=== PATIENT | female | born 1975 | race Caucasian/White ===

== ENCOUNTER → 2018-08-31 | Outpatient (CLI) | payer BC | END | disposition home or self-care (01) | LOC: RADMAMWWP 13:32 | PROVIDERS: ATTEND Obstetrics & Gynecology | DX: Z53.9 Procedure and treatment not carried out, unspecified reason (principal) ==

== ENCOUNTER → 2020-12-22 | Outpatient (CLI) | payer BC ==
--- NOTE | 2020-12-23 09:26 | MM ---
Reason for exam: screening (asymptomatic). Last mammogram was performed 10 years and 1 month ago. History: Patient had first child at age 33. Took hormonal contraceptives for 10 years. Physical Findings: A clinical breast exam by your physician is recommended on an annual basis and results should be correlated with mammographic findings. MG 3D Screening Mammo W/Cad Bilateral CC and MLO view(s) were taken. Prior study comparison: November 09, 2010, bilateral digital screening mammo w/CAD. There are scattered fibroglandular densities. There is no discrete abnormality. No significant changes when compared with prior studies. ASSESSMENT: Negative, BI-RAD 1 RECOMMENDATION: Routine screening mammogram of both breasts in 1 year.
== END | disposition home or self-care (01) ==
LOC: RADMAMWWP 15:59
PROVIDERS: ATTEND Obstetrics & Gynecology
DX: Z12.31 Encounter for screening mammogram for malignant neoplasm of breast (principal)
CPT/HCPCS: 77063; 77067

== ENCOUNTER → 2022-06-27 | Outpatient (CLI) | payer BC ==
--- NOTE | 2022-06-28 18:47 | MM ---
Reason for Exam: Screening (asymptomatic). Last mammogram was performed 1 year(s) and 6 month(s) ago. Patient History: Menarche at age 13. First Full-Term at age 33. Late child-bearing (after 30). Patient used Hormonal Contraceptives for 10 years. Last menstrual period: 06/23/2022 Risk Values: Dee 5 year model risk: 1.2%. NCI Lifetime model risk: 12.7%. Prior Study Comparison: 11/09/2010 Bilateral Screening Mammogram, [facility]. 12/22/2020 Bilateral Screening Mammogram, [facility]. Tissue Density: The breast tissue is heterogeneously dense. This may lower the sensitivity of mammography. Findings: Analyzed By CAD. Asymmetric density superior right MLO view middle to posterior depth remains unchanged. There is no suspicious group of microcalcifications or new suspicious mass in either breast. Overall Assessment: Benign, BI-RAD 2 Management: Screening Mammogram of both breasts in 1 year. 1. Patient should continue monthly self breast exams. 2. A clinical breast exam by your physician is recommended on an annual basis. 3. This exam should not preclude additional follow-up of suspicious palpable abnormalities. Electronically signed and approved by: Emir Garsia M.D. Radiologist
== END | disposition home or self-care (01) ==
LOC: RADMAMWWP 16:04
PROVIDERS: ATTEND Obstetrics & Gynecology
DX: Z12.31 Encounter for screening mammogram for malignant neoplasm of breast (principal)
CPT/HCPCS: 77063; 77067

== ENCOUNTER → 2022-08-08 | Outpatient (CLI) | payer BC ==
[2022-08-08 18:08] LABS: Basophils # (A) 0.03 X 10*3/uL (0.00-0.10); Basophils % (A) 0.4 %; Eosinophils # (A) 0.09 X 10*3/uL (0.04-0.35); Eosinophils % (A) 1.3 %; HGB 13.3 g/dL (12.0-15.0); Immature Grans, Automated 0.1 %; Lymphocytes # (A) 1.56 X 10*3/uL (0.90-5.00); Lymphocytes % (A) 23.3 %; MCH 29.8 pg (27.0-32.0); MCHC 31.7 g/dL (32.0-37.0); MCV 94.2 fL (80.0-97.0); Mean Platelet Volume 10.4 fL (9.5-12.2); Monocytes % (A) 7.5 %; NRBC Per 100 WBC 0 /100 WBCS (0.0-0.0); Neutrophils # (A) 4.51 X 10*3/uL (1.80-7.70); Neutrophils % (A) 67.4 %; Platelet Count 228 X 10*3/uL (140-440); RBC 4.46 X 10*6/uL (4.10-5.20); RDW 13.2 % (11.5-14.5)
[2022-08-08 18:16] LABS: Anion Gap 9.2 mmol/L (10.00-18.00); Blood Urea Nitrogen 9.9 mg/dL (9.0-27.0); Carbon Dioxide 26.3 mmol/L (20.0-27.5); Non-African American GFR(CKD) 89.7 (60.0-200.0)
== END | disposition home or self-care (01) ==
LOC: LABPAT 12:19
PROVIDERS: ATTEND Obstetrics & Gynecology Obstetrics
DX: Z01.812 Encounter for preprocedural laboratory examination (principal); N93.9 Abnormal uterine and vaginal bleeding, unspecified; D25.9 Leiomyoma of uterus, unspecified
CPT/HCPCS: 36415; 80051; 82565; 82947; 84520; 85025; 87086

== ENCOUNTER 2022-08-16 05:48 | Day surgery (SDC) | payer BC ==
[2022-08-11 11:15] VITALS: BMI 31.2
[2022-08-16] MEDS ORDERED: ONDANSETRON 4 MG/2 ML VIAL ONE (06:30)
[2022-08-16] MEDS ORDERED: LACTATED RINGERS 1,000 ML IV ONE ×2 (06:34→08:27)
[2022-08-16] MEDS ORDERED: LIDOCAINE 1% (10MG/ML) FOR IV START INTRADERMA ONE (06:34)
[2022-08-16] MEDS ORDERED: DEXAMETHASONE SOD PHOSPHATE 4 MG/ML 1 ML VIAL IV ONE (06:40)
[2022-08-16] MEDS ORDERED: MIDAZOLAM 2 MG/2 ML VIAL IV ONE (07:08)
[2022-08-16] MEDS ORDERED: BUPIVACAINE (PF) 0.25% 30 ML VIAL SQ ONE (09:00)
[2022-08-16] MEDS ORDERED: ACETAMINOPHEN IV (For NPO) 1,000 MG in EMPTY BAG 1 BAG IVPB ONE (09:26)
[2022-08-16] MEDS ORDERED: IBUPROFEN 600 MG TAB PO PRN (09:26)
[2022-08-16] MEDS ORDERED: ONDANSETRON 4 MG/2 ML VIAL IVP PRN (09:26)
[2022-08-16] MEDS ORDERED: Acetaminophen-Codeine 300-30mg TAB PO PRN ×2 (09:26)
--- NOTE | 2022-08-16 09:40 | P.HPIHPCON ---
History of Present Illness H&P Date: 08/16/22 Chief Complaint: abnormal uterine bleeding, uterine fibroids, LAUREL-1 this is a 47-year-old female with complaints of abnormal uterine bleeding and lower abdominal pain. Ultrasound revealing a lower uterine segment prolapsing fibroid. Patient is requesting definitive treatment with hysterectomy, she has had 2 prior C-sections. Patient is done with childbearing. In addition patient has a history of a known LAUREL 1 lesion on the cervix. Menses are noted to be irregular in nature with an extended bleeding pattern. Consent for Procedure: I have explained the operation/procedure to the patient, including the risks, benefits, side effects, alternative therapies (including not receiving the proposed treatment or service), the likelihood of the patient achieving his/her goals, and potential recuperation problems for the procedure/sedation/analgesia, as well as any blood products, if indicated. I also explained to the patient the risks, benefits and side effects of the alternatives, as well as the risks related to not receiving the proposed procedure, care, treatment, or services. - Constitutional Constitutional: Denies chills, Denies fatigue, Denies fever - EENT Ears, nose, mouth and throat: Denies headache - Cardiovascular Cardiovascular: Denies leg edema - Respiratory Respiratory: Denies cough, Denies dyspnea - Gastrointestinal Gastrointestinal: Denies constipation, Denies diarrhea, Denies nausea, Denies vomiting - Genitourinary (Female) Genitourinary: Denies - Menstruation Menstruation: Reports as per HPI, Reports menses variable Past Medical History Past Medical History: No Reported History History of Any Multi-Drug Resistant Organisms: None Reported Past Surgical History: Section Past Anesthesia/Blood Transfusion Reactions: Postoperative Nausea & Vomiting (PONV) Past Psychological History: Anxiety, Depression Smoking Status: Former smoker Past Alcohol Use History: Occasional Past Drug Use History: None Reported Additional Drug Use History / Comment(s): CBD GUMMY OCCASIONALLY AT NIGHT FOR SLEEP - Past Family History Mother Family Medical History: No Reported History Medications and Allergies Home Medications Medication Instructions Recorded Confirmed Type Sertraline HCl 150 mg PO DAILY 08/11/22 08/11/22 History Allergies Allergy/AdvReac Type Severity Reaction Status Date / Time Penicillins Allergy Unknown Verified 08/16/22 06:15 Childhood Surgical - Exam Osteopathic Statement: *. No significant issues noted on an osteopathic structural exam other than those noted in the History and Physical/Consult. Vital Signs Temp Pulse Resp BP Pulse Ox 97.2 F L 94 16 136/77 97 08/16/22 06:33 08/16/22 06:33 08/16/22 06:33 08/16/22 06:33 08/16/22 06:33 targeted physical exam is performed in this date in general well-nourished well- developed non female in no acute distress, breathing is nonlabored, heart has a regular rate, abdomen is mildly obese and soft nontender no rebound is appreciated. On genitourinary exam external genitalia is noted to be normal for age. The vaginal mucosa is noted to be pink and well rugated, the cervix is without lesion, the uterus is noted to be irregular in shape but mobile. No adnexal masses are appreciated. Assessment and Plan (1) Uterine fibroid Current Visit: Yes Status: Acute Code(s): D25.9 - LEIOMYOMA OF UTERUS, UNSPECIFIED SNOMED Code(s): 21173154 (2) Abnormal uterine bleeding (AUB) Current Visit: Yes Status: Acute Code(s): N93.9 - ABNORMAL UTERINE AND VAGINAL BLEEDING, UNSPECIFIED SNOMED Code(s): 86639779929578 (3) LAUREL I (cervical intraepithelial neoplasia I) Current Visit: Yes Status: Acute Code(s): N87.0 - MILD CERVICAL DYSPLASIA SNOMED Code(s): 920620938 (4) H/O section Current Visit: Yes Status: Acute Code(s): Z98.891 - HISTORY OF UTERINE SCAR FROM PREVIOUS SURGERY SNOMED Code(s): 714823066 Plan: this is a 47-year-old that presents for robotic cyst vaginal hysterectomy with bilateral salpingectomy, diagnostic cystoscopy. Patient is desirous of definitive treatment given history of abnormal uterine bleeding and known prolapsing submucosal fibroid. Patient also has a history of LAUREL-1 of the cervix. Procedure is reviewed in detail and patient states understanding. All questions are answered. Patient is now taken back to the operating suite for robotic cyst vaginal hysterectomy, bilateral salpingectomy, diagnostic cystoscopy.
--- NOTE | 2022-08-16 09:47 | P.OP ---
Date of Procedure: 08/16/22 Preoperative Diagnosis: uterine fibroids, abnormal uterine bleeding, LAUREL-1, history of section 2 Postoperative Diagnosis: same plus suspected adenomyosis Procedure(s) Performed: robotic-assisted vaginal hysterotomy, bilateral salpingectomy, diagnostic cystoscopy Anesthesia: JASMIN Surgeon: Svetlana Saenz [employer] Superintendent #1: Yulisa Gross Estimated Blood Loss (ml): 50 IV fluids (ml): 700 Urine output (ml): 100 Pathology: other (uterus and bilateral fallopian tubes) Condition: stable Disposition: PACU Indications for Procedure: 47-year-old with c/o AUB, prolapsing uterine fibroid noted int he KAM. she is addition has a h/o LAUREL 1 She is requesting definitive treatment given the above complaints. Operative Findings: slightly enlarged globular uterus with irregular shape is appreciated. Ovaries are noted to be normal bilaterally. The right ovary does have a clear simple appearing follicular cyst. Description of Procedure: patient was taken back to the operating suite where general anesthesia was obtained without difficulty by the anesthesia department. She is prepped and draped in normal sterile fashion in the dorsal lithotomy position. A Braxton catheter is placed under sterile technique. Weighted speculum was placed in the posterior vaginal vault, the anterior lip of the cervix is visualized and grasped with a single-tooth tenaculum. Endocervical canal was then serially dilated and a V care uterine macular was advanced into the uterus as a means to miniplate uterus throughout the procedure. At this time all instruments were removed from the patient's vaginal vault. Attention then turned to the patient's abdomen where approximately 2 finger breaths above the umbilicus a small skin incision is made. Through this incision the Veress needles placed. Once the Veress needle was deemed to be in the proper position with a drop of CO2 pressure with insufflation of CO2 gas CO2 insufflation was allowed to occur. At this time a 8 mm trocar and sleeve is placed through the skin incision and toward the pneumoperitoneum. The above-noted findings are visualized. Additional port sites are now placed at 10 cm lateral and 3 cm inferior to midline port. These are 8 mm operative ports and the da Leilani machine and placed under direct visualization. In the left upper quadrant a 12 mm skin incision is made and a 12 mm trocar and sleeve is placed under direct visualization. At this time the da Leilani robot is docked in the usual fashion. The right operative arm has the monopolar scissors, the left operative arm the bipolar forceps is placed. Attention then turned the patient's left fallopian tube the mesosalpinx is grasped coagulated and transected this continues to toward the uterine ovarian ligament which was coagulated distally and proximally and divided. This continued through the broad and toward the round which was coagulated distally approximately divided. The bladder flap was then created using sharp and blunt dissection. The right fallopian tube was then grasped the mesosalpinx coagulated and transected. This continued toward the uterine ovarian ligament which was coagulated distally and proximally and divided. Hemostasis was noted throughout. The round ligament from the right was coagulated and transected. The bladder flap from the right was then created using sharp and blunt dissection. At this time the ascending branch the uterine artery was visualized on the right coagulated and transected hemostasis was appreciated. This was then repeated on the opposite side. At this time a Ray- Stefania was placed into the abdomen to further dissect the bladder away from the operating field. After dissection was complete the Ray-Stefania was remove at this time the only remaining attachment was a vaginal attachment therefore colpotomy incision was made in a circumferential fashion. The uterus bilateral fallopian tubes were then removed through the vaginal opening. The pelvis was then copiously irrigated. Bleeding was noted on the left-hand side of the vaginal cuff this was grasped with the bipolar cautery and hemostasis was noted. The vaginal cuff was then closed with multiple [id number] sutures of 0 Vicryl. approximate 4 [id number] sutures were used to obtain hemostasis. The pelvis was then copiously irrigated once again. Hemostasis was appreciated. Her distal powder was then placed along the vaginal cuff. All instruments removed from the patient's abdomen. The da Lielani was undocked in usual fashion and instrument removed. Attention was then turned the patient's Braxton catheter which was removed without difficulty of note clear yellow urine was noted in the Braxton tube. A cystoscope was then performed. The cystoscope was placed through the urethra and toward the bladder bladder bubble was appreciated both ureteral orifices were noted to be spilling clear yellow urine. No bladder defects were appreciated on a complete survey of the bladder. Cystoscope was removed and the Braxton catheter was replaced. Attention was then turned the patient's incisions were closed with 4-0 Vicryl in a subcuticular fashion. Steri-Strips and sterile dressings were applied. All counts were noted correct 2 at the end of the delivery. Patient did tolerate procedure well and was taken the recovery room awake in stable condition.
[2022-08-16] MEDS: HYDROmorphone 0.5 MG/0.5 ML SYRINGE IVP ONE ×2 (09:55→10:25)
[2022-08-16 10:21] VITALS: RESP 16
[2022-08-16] MEDS: IBUPROFEN IV 800 MG in SODIUM CHLORIDE 0.9% 250 ML IV SCH ×2 (11:40→19:06)
[2022-08-16] MEDS ORDERED: ZOLPIDEM 5 MG TAB PO PRN (17:07)
[2022-08-16] MEDS: SENNOSIDES-DOCUSATE SODIUM 1 EACH TAB PO SCH (20:58)
[2022-08-17] MEDS: IBUPROFEN IV 800 MG in SODIUM CHLORIDE 0.9% 250 ML IV SCH ×2 (01:56→07:01)
[2022-08-17 08:16] LABS: Basophils % (A) 0 %; Eosinophils % (A) 0 %; HCT 37.3 % (34.0-46.0); HGB 12.5 gm/dL (11.4-16.0); Lymphocytes # (A) 1.7 k/uL (1.0-4.8); Lymphocytes % (A) 34 %; MCH 30.3 pg (25.0-35.0); MCHC 33.4 g/dL (31.0-37.0); MCV 90.5 fL (80.0-100.0); Mean Platelet Volume 8.1; Monocytes # (A) 0.3 k/uL (0-1.0); Monocytes % (A) 6 %; Neutrophils # (A) 2.8 k/uL (1.3-7.7); Neutrophils % (A) 58 %; Platelet Count 187 k/uL (150-450); RBC 4.12 m/uL (3.80-5.40); RDW 12.8 % (11.5-15.5); WBC 4.9 k/uL (3.8-10.6)
--- NOTE | 2022-08-17 08:45 | P.DS ---
Providers Date of admission: 08/16/2022 Expected date of discharge: 08/17/22 Attending physician: Svetlana Saenz Primary care physician: Stated None - Discharge Diagnosis(es) (1) Uterine fibroid Current Visit: Yes Status: Acute (2) Abnormal uterine bleeding (AUB) Current Visit: Yes Status: Acute (3) LAUREL I (cervical intraepithelial neoplasia I) Current Visit: Yes Status: Acute (4) H/O section Current Visit: Yes Status: Acute Hospital Course: 47 yo patient that presented to the hospital yesterday on 08/16 for scheduled robotic-assisted vaginal hysterectomy with bilateral salpingectomy, diagnostic cystoscopy. Patient had been struggling with abnormal uterine bleeding with known submucosal prolapsing fibroid. Patient elected definitive treatment given these findings. Patient was taken back to the operating suite where procedure was completed without difficulty. For full details on the surgery please see the dictated operative report. Patient's postoperative course has been uneventful. On this postoperative day #1 she is ambulating and voiding without difficulty. She states her pain is well-controlled. She denies concerns. She would like discharge home later today. Patient Condition at Discharge: Good Plan - Discharge Summary Discharge Rx Participant: No New Discharge Prescriptions: No Action Sertraline HCl 150 mg PO DAILY Discharge Medication List Sertraline HCl 150 mg PO DAILY 08/11/22 [History] Follow up Appointment(s)/Referral(s): Svetlana Saenz DO [Doctor of Osteopathic Medicine] - 2 Weeks Patient Instructions/Handouts: Laparoscopic Hysterectomy (GEN), Laparoscopic Hysterectomy (DC) Discharge Disposition: HOME SELF-CARE
[2022-08-17] MEDS: SENNOSIDES-DOCUSATE SODIUM 1 EACH TAB PO SCH (08:52)
[2022-08-17] MEDS ORDERED: SERTRALINE 100 MG TAB PO SCH (09:00)
[2022-08-17 09:06] VITALS: BP 115/68; PULSE 67; TEMP 98
[2022-08-17] MEDS ORDERED: ACETAMINOPHEN TAB 325 MG TAB PO PRN (09:27)
== END 2022-08-17 09:35 | disposition home or self-care (01) ==
LOC: OR 05:48 → 4FBP 09:41 → OR 08-17 09:35
PROVIDERS: ATTEND Obstetrics & Gynecology Obstetrics
DX: D25.0 Submucous leiomyoma of uterus (principal); D25.1 Intramural leiomyoma of uterus; N87.0 Mild cervical dysplasia; F41.8 Other specified anxiety disorders; K91.0 Vomiting following gastrointestinal surgery; F10.90 Alcohol use, unspecified, uncomplicated; Z87.891 Personal history of nicotine dependence; Z98.891 History of uterine scar from previous surgery
CPT/HCPCS: 58552; 81025; 64461; 86900; 86901; 85025; 86850; 88307; J2250; J1100; J0690; J2405; J0131; J1741 ×2; J1170

== ENCOUNTER → 2024-06-25 | Outpatient (CLI) | payer BC ==
--- NOTE | 2024-06-27 10:20 | MM ---
Reason for Exam: Screening (asymptomatic). Last mammogram was performed 2 year(s) and 0 month(s) ago. Patient History: Menarche at age 13. First Full-Term at age 33. Late child-bearing (after 30). Hysterectomy at age 47. Patient used Hormonal Contraceptives for 10 years. Risk Values: Dee 5 year model risk: 1.3%. NCI Lifetime model risk: 12.3%. Prior Study Comparison: 11/09/2010 Bilateral Screening Mammogram, [facility]. 12/22/2020 Bilateral Screening Mammogram, [facility]. 06/27/2022 Bilateral MG 3D screening mammo w/cad, [facility]. Tissue Density: The breasts are heterogeneously dense, which may obscure small masses. Findings: Analyzed By CAD. There is no suspicious group of microcalcifications or new suspicious mass in either breast. Overall Assessment: Negative, BI-RAD 1 Management: Screening Mammogram of both breasts in 1 year. . Patient should continue monthly self-breast exams. A clinical breast exam by your physician is recommended on an annual basis. This exam should not preclude additional follow-up of suspicious palpable abnormalities. Note on Dee scores and lifetime risk: 1. A Dee score greater than 3% is considered moderate risk. If this is the case, consider specialist referral to assess eligibility for a risk reducing agent. 2. If overall lifetime risk for the development of breast cancer is 20% or higher, the patient may qualify for future screening with alternating mammogram and breast MRI. [facility], , 06/27/2024 10:18 AM. Electronically signed and approved by: Slade Noel M.D. Radiologis
== END | disposition home or self-care (01) ==
LOC: RADMAMWWP 15:56
PROVIDERS: ATTEND Nurse Practitioner Family
CPT/HCPCS: 77063; 77067